=== PATIENT | male | born 1990 | race African-American/Black ===

== ENCOUNTER 2021-12-13 19:46 | Emergency (ER) | payer OTHER ==
[2021-12-13] MEDS ORDERED: Amlodipine 5 MG TAB ONE (20:11)
[2021-12-13] MEDS ORDERED: diphenhydrAMINE 25 MG CAP ONE (20:19)
[2021-12-13] MEDS ORDERED: Prochlorperazine 10 MG/2 ML VIAL ONE (20:19)
[2021-12-13] MEDS ORDERED: Acetaminophen 500 MG TAB ONE (20:19)
== END 2021-12-13 20:40 | disposition home or self-care (01) ==
LOC: MADERS 19:46
DX: I10 Essential (primary) hypertension (principal); F17.210 Nicotine dependence, cigarettes, uncomplicated
CPT/HCPCS: 96372; 99283; J0780

== ENCOUNTER 2024-08-01 04:46 | Emergency (ER) | payer BC, OTHER, SELFPAY ==
[2024-08-01] MEDS ORDERED: Acetaminophen 500 MG TAB ONE (04:59)
[2024-08-01 05:53] LABS: SARS-CoV-2 E Target Negative; SARS-CoV-2 N2 Target Negative; SARS-CoV-2 NAA Rapid Test Not Detected (NotDetected); SARS-CoV-2 RdRP gene Negative
== END 2024-08-01 06:10 | disposition home or self-care (01) ==
LOC: MADERS 04:46
DX: J11.1 Influenza due to unidentified influenza virus with other respiratory manifestations (principal); I10 Essential (primary) hypertension; F17.210 Nicotine dependence, cigarettes, uncomplicated
CPT/HCPCS: 87804; 99284; U0002